=== PATIENT | female | born 1955 | race Caucasian/White ===

== ENCOUNTER → 2018-01-28 | Day surgery (SDC) | payer OTHER ==
[~2018-01-28] MED LIST: ADIPEX-P37.5 MG PO; BACLOFEN10 MG PO; BUPIVACAINE; CYMBALTA30 MG PO; DESYREL PO; DUEXIS 800-26.1 EACH PO; FENTANYL CITRATE/PF 100MCG/2 ML INJ ONE; FENTANYL PUMP; GLUCAGON FOR INJ 1 MG VIAL ONE; HYOSCYAMINE SULFATE 0.5 MG/ML INJ ONE; KETAMINE HCL INJ 50 MG/ML 10 ML VIAL ONE; MELATONIN3 MG PO; MIDAZOLAM HCL 2 MG/2 ML VIAL ONE; OXYCODONE HCL; PAIN PUMP FENTANYL; PROPOFOL IV EMULSION 10 MG/ML 50 ML VIAL ONE; RESTORIL15 MG PO; RESTORIL30 MG PO; VALIUM5 MG PO; Z ESTRACE PO; Z.0.BENTYL20 MG PO; Z.0.BYSTOLIC5 MG PO; Z.0.DEXILANT30 MG PO; ZOFRAN PO; ZOFRAN4 MG PO
[2018-01-28 16:16] VITALS: BP 143/83
--- NOTE | 2018-01-28 16:54 | Operative Report ---
DATE OF PROCEDURE: January 28, 2018 REFERRING PHYSICIAN: Dr. Kevin Malin. PROCEDURES PERFORMED: 1. Esophagogastroduodenoscopy with esophageal dilatation and biopsies. 2. Colonoscopy with polypectomy. INDICATIONS FOR ESOPHAGOGASTRODUODENOSCOPY: Dysphagia. INDICATIONS FOR COLONOSCOPY: Rectal bleeding, personal history of colon polyps. MEDICATION: Patient was done under MAC. Please see anesthesiologist's note. PROCEDURE: With the patient in the left lateral decubitus position, the flexible fiberoptic Olympus gastroscope was introduced into the esophagus under direct visualization without any difficulty. There was some patchy erythema noted in the distal esophagus. There was a minute tongue of velvety red mucosa noted to extend proximally from the GE junction, and that was biopsied to rule out Sull[place]'s. Esophagus was dilated to size 52-Trinidadian Up. The scope was then advanced with ease into the stomach. Mucosa overlying the antrum and the body revealed some patchy erythema and mild to moderate edema, and biopsies were obtained and sent to stain for H. pylori. Pylorus appeared to be of normal contour and shape, was intubated with ease, and the scope was advanced all the way to the 2nd portion of the duodenum. The scope was then withdrawn slowly. Mucosa overlying the proximal 2nd portion grossly appeared to be within normal limits. Biopsies were obtained to rule out sprue. The scope was then withdrawn back into the stomach and retroflexed, and the mucosa overlying the fundus and the cardia appeared to be within normal limits. The scope was then straightened out. The stomach was decompressed. The scope was subsequently withdrawn. Patient tolerated procedure well. IMPRESSION: 1. Distal esophagitis. 2. Rule out Sullivan's esophagus. 3. Esophageal stricture at gastroesophageal junction dilated to size 52-Trinidadian Up. 4. Gastritis biopsied. Biopsies sent to stain for H. pylori. 5. Rule out sprue. PLAN: Follow up histology. Continue Dexilant 60 mg 1 p.o. q.a.m. a.c. Patient was then turned around and after adequate lubrication of the anal canal, a flexible fiberoptic Olympus colonoscope was inserted into the rectum and advanced with some difficulty all the way to the cecum. The scope was then withdrawn slowly. The mucosa overlying the cecum and ascending appeared to be within normal limits. There was a focal nodular area noted in the mid to distal transverse colon, and that was hot biopsied. Whatever was visualized of the descending appeared to be within normal limits. Two polyps were hot biopsied from the sigmoid. The rectum appeared to be within normal limits. The scope was then retroflexed into the distal rectum and small internal hemorrhoids were noted, none of which was actively bleeding. The scope was then straightened out. It was subsequently withdrawn. Patient tolerated procedure well. IMPRESSION: 1. Focal nodularity transverse colon hot biopsied. 2. Sigmoid colon polyps times 2 hot biopsied. 3. Internal hemorrhoids, none actively bleeding. PLAN: Follow up histology. Initiate high-fiber low-fat diet. Initiate high-fiber supplement. Start VSL#3 one p.o. daily. Patient might benefit from a followup colonoscopy in 3 to 5 years. Job#: [id number] EV cc:KEVIN MALIN MD
== END | disposition home or self-care (01) ==
LOC: OR 10:18
PROVIDERS: ATTEND Internal Medicine Gastroenterology
DX: K22.2 Esophageal obstruction (principal); K20.9 Esophagitis, unspecified; K29.50 Unspecified chronic gastritis without bleeding; K63.5 Polyp of colon; K64.8 Other hemorrhoids; K63.9 Disease of intestine, unspecified; K62.5 Hemorrhage of anus and rectum; I10 Essential (primary) hypertension; K21.0 Gastro-esophageal reflux disease with esophagitis; K58.9 Irritable bowel syndrome, unspecified; R56.9 Unspecified convulsions; M48.00 Spinal stenosis, site unspecified; Z88.1 Allergy status to other antibiotic agents; Z88.0 Allergy status to penicillin; Z88.2 Allergy status to sulfonamides; Z88.8 Allergy status to other drugs, medicaments and biological substances; Z91.09 Other allergy status, other than to drugs and biological substances; Z96.89 Presence of other specified functional implants
CPT/HCPCS: 43239; 43450; 45384; 93005; J1610; J1980; J2250